=== PATIENT | female | born 1980 | race Caucasian/White ===

== ENCOUNTER 2017-08-16 07:20 | Emergency (ER) | payer MEDICAID ==
[~2017-08-16] VITALS: Ht 157.5 cm; Wt 74.0 kg
[~2017-08-16 07:20] MED LIST: CEPH-571 PO; CLIN-80 PO; CYCL-1 PO; GUAI1TBM19 PO; METH4TAB3 PO; NO HOME MEDS; TRIA15CR61 TP
[2017-08-16] MEDS ORDERED: ondansetron/PF 4mg/2ml inj IV ONE (07:45)
[2017-08-16] MEDS ORDERED: dexamethasone sod phosphate 10mg/ml inj PO STA (07:58)
[2017-08-16] MEDS ORDERED: PRED20TA PO (07:59)
[2017-08-16 08:33] VITALS: BP 116/77
== END 2017-08-16 08:34 | disposition home or self-care (01) ==
LOC: ER 07:20
DX: L23.7 Allergic contact dermatitis due to plants, except food (principal); G89.29 Other chronic pain; F17.210 Nicotine dependence, cigarettes, uncomplicated; Z79.899 Other long term (current) drug therapy
CPT/HCPCS: 96374; 99284; J1100; J2405

== ENCOUNTER 2017-11-26 11:48 | Emergency (ER) | payer MEDICAID | END 2017-11-26 13:05 | disposition left against medical advice (07) | LOC: ER 11:48 | DX: R21 Rash and other nonspecific skin eruption (principal); Z53.21 Procedure and treatment not carried out due to patient leaving prior to being seen by health care provider ==

== ENCOUNTER 2018-10-09 10:30 | Emergency (ER) | payer MEDICAID, OTHER ==
[~2018-10-09] VITALS: Ht 157.5 cm; Wt 75.0 kg
[~2018-10-09 10:30] MED LIST changes: -CLIN-80 PO; +CLIN-96 PO
[2018-10-09 11:52] LABS: ALANINE AMINOTRANSFERASE 32 U/L (12-78); ALBUMIN 4.4 G/DL (3.4-5.0); ALKALINE PHOSPHATASE 94 IU/L (46-116); ANION GAP 11 (8-16); ASPARTATE AMINO TRANSFERASE 24 U/L (10-37); BILIRUBIN,TOTAL 0.3 MG/DL (0.1-1.0); BLOOD UREA NITROGEN 18 MG/DL (7-18); BUN/CREATININE RATIO 17.6 (6.6-38.0); CALCIUM 10.1 MG/DL (8.5-10.1); CHLORIDE 102 MMOL/L (99-107); CREATININE 1.02 MG/DL (0.40-0.90); GLUCOSE 94 MG/DL (70-104); POTASSIUM 3.8 MMOL/L (3.5-5.1); SODIUM 137 MMOL/L (135-145); TOTAL CARBON DIOXIDE 23.9 MMOL/L (24-32); TOTAL PROTEIN 8.6 G/DL (6.4-8.2); eGFR 61 ML/MIN
[2018-10-09 11:59] LABS: LIPASE 89 U/L (73-393)
[2018-10-09 12:24] LABS: BASOPHILS # (AUTO) 0.1 X10'3 (0-0.2); BASOPHILS % (AUTO) 0.4 % (0-1); EOSINOPHILS % (AUTO) 0.3 % (0-6); HEMATOCRIT 43.8 % (35.0-45.0); HEMOGLOBIN 14.3 g/dl (12.0-16.0); LYMPHOCYTES # (AUTO) 1.1 X10'3 (1.1-4.8); LYMPHOCYTES % (AUTO) 7.5 % (21-51); MEAN CORPUSCULAR HGB CONC 32.6 g/dL (33.0-36.5); MEAN CORPUSCULAR VOLUME 88.9 FL (78-98); MEAN PLATELET VOLUME 6.4 FL (7.4-10.4); MONOCYTES # (AUTO) 0.6 X10'3 (0-0.9); MONOCYTES % (AUTO) 3.8 % (2-12); NEUTROPHILS # (AUTO) 13.5 X10'3 (1.8-7.7); PLATELET COUNT 418 X10'3 (140-440); RED BLOOD COUNT 4.93 X10'6 (4.20-5.60); RED CELL DISTRIBUTION WIDTH 13.7 % (11.5-14.5); WHITE BLOOD COUNT 15.3 X10'3 (4.5-11.0)
[2018-10-09 12:35] LABS: PROTHROMBIN TIME 9.9 SECONDS (9.0-12.0)
--- NOTE | 2018-10-09 13:11 | NUR ---
PT UNRULY MEDRANO PT REFUSED A STRAIGHT CATH FOR URINE. RN EXPLAINED THE NECESSITY FOR THE URINE RELATED TO ABD PAIN. PT'S VISITOR IS HAS MADE COMPLAINTS TO RN THAT "YOU ARE NOT DOING ANYTHING FOR HER". RN REITERATED THAT THE URINE IS NEEDED AND THAT CARE WILL BE BASED ON LAB RESULTS
[2018-10-09 13:45] VITALS: BP 115/79
[2018-10-09] MEDS ORDERED: normal saline 1000ML IV soln IVB ONE (13:50)
--- NOTE | 2018-10-09 14:55 | NUR ---
PATIENT IV FLUID FINISHED, UNHOOKED FROM IV TUBING AND UNHOOKED FROM MONITORING TO ENABLE PATIENT TO GO TO THE BATHROOM TO PROVIDE URINE SAMPLE; UNRULY LERNER COVERING FOR BREAK
--- NOTE | 2018-10-09 15:15 | NUR ---
PATIENT NOT IN ROOM, URINE SAMPLE LEFT IN SINK. NO PERSONAL BELONGINGS IN ROOM, PATIENT WAS IN HOSPITAL SOCKS, HOSPITAL SOCKS ON FLOOR IN ROOM. VIDAL INFORMED, TRUCK LOADER DEBBIE INFORMED. TITO TOLLIVER CALLED [facility] DUE TO THE FACT THAT THE PATIENT'S RIGHT AC 20 GAUGE IV WITH SL WAS IN PLACE AND THEIR IS NO EVIDENCE OF IT BEING RIPPED OUT IN THE ROOM
--- NOTE | 2018-10-09 15:49 | NUR ---
LEFT MESSAGE ON HECTOR'S PHONE [phone] FOR HIS ILEANA TO RETURN TO THE ER FOR REMOVAL OF HER IV
[2018-10-09 15:50] LABS: URINE HCG NEGATIVE (NEG)
[2018-10-09 15:53] LABS: CLARITY,URINE SLIGHTLY CLOUDY (Clear); COLOR,URINE YELLOW (Yellow); GLUCOSE, URINE NEGATIVE (Neg); KETONES,URINE 15 mg/dl (Neg); LEUKOCYTE ESTERASE ,URINE NEGATIVE (Neg); NITRITES, URINE NEGATIVE (Neg); OCCULT BLOOD,URINE LARGE (Neg); PH,URINE 5.5 (4.8-8.0); PROTEIN,URINE NEGATIVE (Neg); UA COLLECTION TYPE CLN CATCH MIDSTREAM; UROBILINOGEN,URINE 0.2 E.U/dL (0.2-1.0)
[2018-10-09 16:01] LABS: MUCUS STRANDS MODERATE /LPF (Neg); SQUAMOUS EPITHELIAL CELL,UR MANY /LPF (FEW)
[2018-10-09 16:02] LABS: WBC,URINE 0-4 /HPF (0-4)
[2018-10-09 16:04] LABS: BACTERIA,URINE 1+ /HPF (Neg); RBC,URINE 0-2 /HPF (0-2)
[2018-10-09 16:05] LABS: WBC CLUMPS,URINE FEW /HPF (NEGATIVE)
== END 2018-10-09 15:41 | disposition left against medical advice (07) ==
LOC: ER 10:30 → UNDOADMIN 20:36 → ED HOLD 20:36
DX: R10.30 Lower abdominal pain, unspecified (principal); R10.84 Generalized abdominal pain; R53.1 Weakness; R11.0 Nausea; G89.29 Other chronic pain; F17.200 Nicotine dependence, unspecified, uncomplicated; Z79.1 Long term (current) use of non-steroidal anti-inflammatories (NSAID); Z79.899 Other long term (current) drug therapy
CPT/HCPCS: 36415; 74176; 80053; 81001; 81025; 83690; 85025; 85610; 93005; 99284; J7030

== ENCOUNTER 2019-05-05 10:18 | Day surgery (SDC) | payer MEDICAID ==
[2019-04-30 10:59] LABS: BASOPHILS % (AUTO) 0.4 % (0-1); EOSINOPHILS # (AUTO) 0.3 X10'3 (0-0.9); EOSINOPHILS % (AUTO) 3.3 % (0-6); LYMPHOCYTES # (AUTO) 2.2 X10'3 (1.1-4.8); LYMPHOCYTES % (AUTO) 28.3 % (21-51); MEAN CORPUSCULAR HEMOGLOBIN 29.6 PG (27.0-31.0); MEAN CORPUSCULAR HGB CONC 33.5 g/dL (33.0-36.5); MEAN CORPUSCULAR VOLUME 88.4 FL (78-98); MEAN PLATELET VOLUME 6.8 FL (7.4-10.4); MONOCYTES # (AUTO) 0.5 X10'3 (0-0.9); MONOCYTES % (AUTO) 6.7 % (2-12); NEUTROPHILS # (AUTO) 4.7 X10'3 (1.8-7.7); NEUTROPHILS % (AUTO) 61.3 % (42-75); PRE OP HEMATOCRIT 45.2 % (35.0-45.0); PRE OP HEMOGLOBIN 15.1 g/dL (12.0-16.0); PRE OP PLATELET COUNT 442 X10'3 (140-440); RED BLOOD COUNT 5.11 X10'6 (4.20-5.60); RED CELL DISTRIBUTION WIDTH 13.8 % (11.5-14.5)
[2019-04-30 11:02] LABS: CLARITY,URINE SLIGHTLY CLOUDY (Clear); COLOR,URINE YELLOW (Yellow); GLUCOSE, URINE NEGATIVE (Neg); KETONES,URINE NEGATIVE (Neg); LEUKOCYTE ESTERASE ,URINE NEGATIVE (Neg); NITRITES, URINE NEGATIVE (Neg); OCCULT BLOOD,URINE NEGATIVE (Neg); PROTEIN,URINE NEGATIVE (Neg); UROBILINOGEN,URINE 0.2 E.U/dL (0.2-1.0)
[2019-04-30 11:03] LABS: UA COLLECTION TYPE CLN CATCH MIDSTREAM
[2019-04-30 11:14] LABS: BACTERIA,URINE FEW /HPF (Neg); MUCUS STRANDS MANY /LPF (Neg); RBC,URINE NONE SEEN /HPF (0-2); SQUAMOUS EPITHELIAL CELL,UR MANY /LPF (FEW); WBC,URINE 0-4 /HPF (0-4)
[2019-04-30 11:18] LABS: ALBUMIN 3.9 G/DL (3.4-5.0); ALBUMIN/GLOBULIN RATIO 0.9 (1.1-1.5); ALKALINE PHOSPHATASE 89 IU/L (46-116); BLOOD UREA NITROGEN 11 MG/DL (7-18); BUN/CREATININE RATIO 12.8 (6.6-38.0); CHLORIDE 104 MMOL/L (99-107); CREATININE 0.86 MG/DL (0.40-0.90); PRE OP ALT 26 U/L (30-65); PRE OP ANION GAP 9 (8-16); PRE OP AST 16 U/L (10-37); PRE OP BILIRUB, TOTAL 0.4 MG/DL (0.0-1.0); PRE OP GLUCOSE 91 MG/DL (70-104); PRE OP POTASSIUM 3.8 MMOL/L (3.4-5.1); PRE OP SODIUM 141 MMOL/L (135-145); TOTAL CARBON DIOXIDE 27.6 MMOL/L (24-32); TOTAL PROTEIN 8.3 G/DL (6.4-8.2); eGFR 74 ML/MIN
[~2019-05-05] VITALS: Ht 157.5 cm; Wt 76.9 kg
[~2019-05-05 10:18] MED LIST changes: -CEPH-571 PO; -CLIN-96 PO; -CYCL-1 PO; -GUAI1TBM19 PO; -METH4TAB3 PO; -TRIA15CR61 TP; +cefazolin/dext.iso 2gm/50ml 50 ML IV ONE; +famotidine 20mg tablet PO ONE; +ringers solution, lacted 1,000 ML IV SCH
[2019-05-05 10:20] VITALS: BP 126/86
[2019-05-05] MEDS ORDERED: BUPIVAcaine/PF 2.5mg/ml (0.25%) 10ml vial ONE (13:10)
[2019-05-05] MEDS ORDERED: BUPIVACAINE liposomal/PF 13.3 MG/ML vial IM ONE (13:10)
[2019-05-05] MEDS ORDERED: ringers solution, lacted 1,000 ML IV SCH (13:27)
[2019-05-05] MEDS ORDERED: meperidine/PF 25mg/ml syringe IV PRN ×3 (13:30)
[2019-05-05] MEDS ORDERED: ondansetron/PF 4mg/2ml inj IV PRN (13:30)
[2019-05-05] MEDS ORDERED: proCHLORperazine 10 MG/2 ml inj IV PRN (13:30)
[2019-05-05] MEDS ORDERED: morphine 4 MG/ML inj SYRINge IV PRN ×2 (13:30)
[2019-05-05] MEDS ORDERED: fentaNYL/PF 50MCG/1 ML 2ML syringe ONE (13:37)
[2019-05-05] MEDS ORDERED: midazolam 2 mg/2 ml injection ONE (13:37)
[2019-05-05] MEDS ORDERED: LIDOcaine 1% 30ml preserv. free vial ONE (13:47)
[2019-05-05 14:03] VITALS: BP 123/78
--- NOTE | 2019-05-05 14:03 | NUR ---
Received from OR via , accompanied by Anesthesiologist DR APARICIO and report given by Anesthesiolgist. AWAKENS TO VOICE. VITALS STABLE. DRESSING DI. ODALYS PAIN.
[2019-05-05 14:13] VITALS: BP 138/64
[2019-05-05 14:23] VITALS: BP 128/66
[2019-05-05 14:33] VITALS: BP_SYST 129; BP_SYST 136; BP_DIAS 82; BP_DIAS 90
--- NOTE | 2019-05-05 14:53 | NUR ---
AWAKE AND ORIENTED. VITALS STABLE. DRESSING DI. ODALYS PAIN. HOME WITH HER SPOUSE AT THIS TIME.
== END 2019-05-05 14:53 | disposition home or self-care (01) ==
LOC: PAS 10:18
PROVIDERS: ATTEND Surgery
DX: D17.79 Benign lipomatous neoplasm of other sites (principal); K62.0 Anal polyp; I10 Essential (primary) hypertension; F41.9 Anxiety disorder, unspecified; Z98.890 Other specified postprocedural states; Z98.51 Tubal ligation status; Z79.899 Other long term (current) drug therapy; Z87.891 Personal history of nicotine dependence
CPT/HCPCS: 36415; 46922; 80053; 81001; 82948; 85025; A6258; C9290; J2001; J2250; J3010; J3490; A4215; A4618; A6449; J7120

== ENCOUNTER 2020-05-24 13:16 | Emergency (ER) | payer MEDICAID, OTHER ==
[~2020-05-24] VITALS: Ht 154.9 cm; Wt 63.6 kg
[~2020-05-24 13:16] MED LIST changes: -cefazolin/dext.iso 2gm/50ml 50 ML IV ONE; -famotidine 20mg tablet PO ONE; -ringers solution, lacted 1,000 ML IV SCH
[2020-05-24] MEDS ORDERED: acetaminophen 325mg tablet PO ONE (13:40)
[2020-05-24] MEDS ORDERED: normal saline 1000ML IV soln IVB ONE (13:55)
[2020-05-24] MEDS ORDERED: normal saline 1000ML IV soln IV ONE (14:45)
[2020-05-24 14:50] LABS: BASOPHILS # (AUTO) 0.1 X10'3 (0-0.2); BASOPHILS % (AUTO) 0.4 % (0-1); EOSINOPHILS # (AUTO) 0.1 X10'3 (0-0.9); EOSINOPHILS % (AUTO) 0.4 % (0-6); HEMOGLOBIN 13.9 g/dl (12.0-16.0); LYMPHOCYTES # (AUTO) 1.8 X10'3 (1.1-4.8); LYMPHOCYTES % (AUTO) 8.3 % (21-51); MEAN PLATELET VOLUME 7.2 FL (7.4-10.4); MONOCYTES # (AUTO) 1.3 X10'3 (0-0.9); MONOCYTES % (AUTO) 6.1 % (2-12); NEUTROPHILS # (AUTO) 18.7 X10'3 (1.8-7.7); NEUTROPHILS % (AUTO) 84.8 % (42-75); PLATELET COUNT 346 X10'3 (140-440); RED BLOOD COUNT 4.78 X10'6 (4.20-5.60); RED CELL DISTRIBUTION WIDTH 13.5 % (11.5-14.5)
[2020-05-24 14:54] LABS: ALANINE AMINOTRANSFERASE 26 U/L (12-78); ALBUMIN 3.2 G/DL (3.4-5.0); ALBUMIN/GLOBULIN RATIO 0.7 (1.1-1.5); ALKALINE PHOSPHATASE 106 IU/L (46-116); ANION GAP 8 (8-16); ASPARTATE AMINO TRANSFERASE 17 U/L (10-37); BILIRUBIN,TOTAL 0.2 MG/DL (0.1-1.0); BLOOD UREA NITROGEN 5 MG/DL (7-18); BUN/CREATININE RATIO 6.3 (6.6-38.0); CALCIUM 8.4 MG/DL (8.5-10.1); CHLORIDE 102 MMOL/L (99-107); GLUCOSE 114 MG/DL (70-104); LIPASE 52 U/L (73-393); POTASSIUM 3.3 MMOL/L (3.5-5.1); SODIUM 133 MMOL/L (135-145); TOTAL CARBON DIOXIDE 22.9 MMOL/L (24-32); TOTAL PROTEIN 7.8 G/DL (6.4-8.2); eGFR 80 ML/MIN
[2020-05-24 15:34] LABS: PLATELET ESTIMATE NORMAL; TOTAL CELLS COUNTED 100
[2020-05-24 16:07] LABS: CLARITY,URINE SLIGHTLY CLOUDY (Clear); COLOR,URINE STRAW (Yellow); GLUCOSE, URINE 100 mg/dl (Neg); KETONES,URINE NEGATIVE (Neg); LEUKOCYTE ESTERASE ,URINE NEGATIVE (Neg); NITRITES, URINE NEGATIVE (Neg); OCCULT BLOOD,URINE NEGATIVE (Neg); PROTEIN,URINE NEGATIVE (Neg); UROBILINOGEN,URINE 0.2 E.U/dL (0.2-1.0)
[2020-05-24 16:10] LABS: UA COLLECTION TYPE VOIDED
[2020-05-24 16:18] LABS: MUCUS STRANDS MANY /LPF (Neg); SQUAMOUS EPITHELIAL CELL,UR MANY /LPF (FEW)
[2020-05-24 16:20] LABS: C-REACTIVE PROTEIN 11.17 MG/DL (0.0-0.5); FERRITIN 90 NG/ML (8-252); LACTATE DEHYDROGENASE 200 U/L (81-234)
[2020-05-24 16:21] LABS: WBC,URINE 0-4 /HPF (0-4)
[2020-05-24 16:22] LABS: BACTERIA,URINE 1+ /HPF (Neg); RBC,URINE 0-2 /HPF (0-2)
--- NOTE | 2020-05-24 17:09 | NUR ---
[facility] HER [facility]SP[facility] HOME [phone]
[2020-05-24 17:14] LABS: D-DIMER 0.75 MG/L FEU (0-0.50)
[2020-05-24 17:59] LABS: URINE AMPHETAMINE SCREEN POSITIVE (Neg); URINE BARBITUATE SCREEN NEGATIVE (Neg); URINE BENZODIAZEPINES SCREEN NEGATIVE (Neg); URINE CANNABINOID SCREEN NEGATIVE (Neg); URINE COCAINE SCREEN NEGATIVE (Neg); URINE METHADONE SCREEN NEGATIVE (Neg); URINE OPIATE SCREEN NEGATIVE (Neg); URINE PHENCYCLIDINE SCREEN NEGATIVE (Neg)
[2020-05-24 18:01] VITALS: BP 111/63
[2020-05-24] MEDS ORDERED: iohexol 350MG/ML 100ml bottle IV ONE (18:02)
== END 2020-05-24 18:30 | disposition left against medical advice (07) ==
LOC: ER 13:16
DX: R00.0 Tachycardia, unspecified (principal); E86.0 Dehydration; R50.9 Fever, unspecified; R11.0 Nausea; R19.7 Diarrhea, unspecified; Z20.828 Contact with and (suspected) exposure to other viral communicable diseases; F15.10 Other stimulant abuse, uncomplicated; F17.200 Nicotine dependence, unspecified, uncomplicated
CPT/HCPCS: 36415; 71045; 80053; 80305; 81001; 82728; 83605; 83615; 83690; 84145; 84443; 85007; 85025; 85379; 86140; 87635; 96360; 96361; 99285; C9803; J7030; Q9967